=== PATIENT | female | born 1930 | race Two or more races ===

== ENCOUNTER 2017-05-09 15:30 | Inpatient (IN) ==
[2017-05-09] MEDS ORDERED: FUROSEMIDE 100 MG/10 ML VIAL IV STA (16:06)
[2017-05-09] MEDS ORDERED: MORPHINE 2 MG/1 ML SYRINGE IV STA (16:08)
[2017-05-09 16:19] LABS: Basophils % 0.1 % (0.0-0.8); Eosinophils % 0.3 % (0.00-10.9); Hematocrit 34.4 VOL% (35.7-47.0); Hemoglobin 11.6 GM/DL (12.0-16.0); Immature Granulocytes % 0.7 %; Immature Granulocytes Absolute 0.05 #; Lymphocytes # 0.9 10*3/uL (1.4-4.0); Lymphocytes % 11.1 % (21.3-54.2); Mean Corpuscular HGB Conc 33.7 GM/DL (32-36); Mean Corpuscular Hemoglobin 29 PG (27-34); Mean Corpuscular Volume 84.5 FL (87-102); Mean Platelet Volume 10.2 FL (9.6-12.0); NRBC # 0.04 10*3/uL; Neutrophils # 5.8 10*3/uL (1.4-7.4); Neutrophils % 74.8 % (38.7-73.9); Platelet Count 138 T/CUMM (130-400); Red Blood Count 4.07 MC/CUMM (3.8-5.5); White Blood Count 7.7 T/CUMM (4-12)
[2017-05-09] MEDS ORDERED: FUROSEMIDE 40 MG/4 ML VIAL ONE (16:19)
[2017-05-09] MEDS ORDERED: MORPHINE 2 MG/1 ML SYRINGE ONE (16:19)
[2017-05-09 16:35] LABS: Albumin 3.2 G/DL (3.4-5.0); Bilirubin,Total 1.9 MG/DL (0.2-1.0); Calcium 9.3 MG/DL (8.5-10.1); Potassium 3.6 MMOL/L (3.5-5.1); Total Protein 6.2 G/DL (6.4-8.3)
--- NOTE | 2017-05-09 16:36 | XRay Report ---
Portable chest Indication: Shortness of breath, cough Comparison: March 29, 2016 Findings: Heart size appears slightly more prominent with plaquing again noted along the arch. Persistent coarsening of the central interstitial. No focal consolidation. No acute osseous abnormalities. Visualized upper abdomen demonstrates no acute pathology. Impression: Cardiomegaly. No overt failure PROCEDURE INTERPRETED AT [facility] DEPARTMENT OF RADIOLOGY Final Report Signed by: Johnnie Gordon MD
[2017-05-09 16:39] LABS: Troponin I Only 0.058 NG/ML (0.00-0.045)
[2017-05-09 17:10] LABS: Apearance,Urine Slightly Hazy (Clear); Bacteria,Urine Occasional /HPF (Few); Bilirubin,Urine Negative (Negative); Blood, Urine Negative (Negative); Glucose,Urine (UA) Negative (Negative); Granular Casts,Urine 15 /LPF (0-1); Hyaline Casts,Urine 11 /LPF (0-3); Ketones,Urine Negative (Negative); Mucus,Urine Occasional /LPF (Occasional); Nitrite,Urine Negative (Negative); Protein,Urine Negative; RBC,Urine 1 /HPF (0-4); Squamous Epithelial Cell,Urine Occasional /HPF (0-10); Urine Color Yellow (Yellow); Urine Specific Gravity 1.006 (1.001-1.035); Urine Urobilinogen < 2.0 EU/DL (0.2-1.0); WBC,Urine 3 /HPF (0-6)
[2017-05-09] MEDS ORDERED: MAGNESIUM SULF RIDER 4 GM in PREMIX 1 EACH IV PRN (18:16)
[2017-05-09] MEDS ORDERED: MAGNESIUM SULF RIDER 2 GM in PREMIX 1 EACH IV PRN (18:16)
[2017-05-09] MEDS ORDERED: POTASSIUM CHLORIDE RIDER 10 MEQ in PREMIX 1 EACH IV PRN (18:16)
[2017-05-09] MEDS ORDERED: ACETAMINOPHEN 325 MG TABLET PO PRN (18:16)
[2017-05-09] MEDS ORDERED: MORPHINE 2 MG/1 ML SYRINGE IV PRN (18:16)
[2017-05-09] MEDS ORDERED: POTASSIUM CHLORIDE 20 MEQ/15 ML UDCUP PER TUBE PRN (18:16)
[2017-05-09] MEDS ORDERED: ONDANSETRON 4 MG/2 ML VIAL IV PRN (18:16)
--- NOTE | 2017-05-09 18:16 | Emergency Department Note ---
Reid Harmon Manpreet, am scribing for, and in the presence of, Slade Bennett MD 16:08. Donald Harmon Doug C, MD, personally performed the services described in this documentation, ascribed by Austin Mathews in my presence, and it is both accurate and complete . Arrival - Arrival Chief Complaint: Non-Specific Stated Complaint: not feeling well ED Nursing Triage Note: c/o not feeling well. Family states that patient thinks she is having a heart problem. Family states that patient has not felt good for about 3 days but today she is unable to walk. No chest pain but breathing is fast. Patient does not speak lao Mode of Arrival: Wheelchair Limitations: No Limitations Source: Patient - History of Present Illness HPI Narrative: Patient is a 87-year-old female who presents to emergency room complaining of increasing shortness of breath. Patient states she has had lower extremity swelling and dyspnea on exertion. This apparently started 2-3 days ago. Patient has a history of a leaking heart valve and has an appointment to see cardiology next week. She apparently is not having any chest pain. Patient does not speak Armenian but her family is able to interpret for her. There is no history of fever, chills or any increased cough. She is not having any urinary symptoms. Onset (ago): day(s) (3 days ago) Consistency: constant Severity: moderate Severity scale (1-10): 4 Allergies/Adverse Reactions: Allergies Allergy/AdvReac Type Severity Reaction Status Date / Time No Known Allergies Allergy Verified 05/09/17 15:39 Home Medications: Home Medications Medication Instructions Recorded Confirmed Type Atorvastatin Calcium 40 mg PO BEDTIME 03/29/16 05/09/17 History Clopidogrel [Plavix] 75 mg PO QAM 03/29/16 05/09/17 History Furosemide Tab [Lasix Tab] 20 mg PO BID 03/29/16 05/09/17 History Metoprolol Succinate Xl [Toprol Xl] 50 mg PO QAM 03/29/16 05/09/17 History Telmisartan 20 mg PO QAM 03/29/16 05/09/17 History Loratadine [Loratadine] 10 mg PO QAM 05/09/17 05/09/17 History Omeprazole [Omeprazole] 40 mg PO QAM 05/09/17 05/09/17 History Review of System - Review of System 12 point system: reviewed and no additional remarkable complaints except as stated - Review of System Constitutional: Present: weakness. Absent: chills, diaphoresis, fever Respiratory: Present: cough, respiratory distress Cardiovascular: Present: edema (in Bilat LE's and left arm). Absent: chest pain Gastrointestinal: Absent: abdominal pain, nausea, vomiting, diarrhea Genitourinary female: Absent: dysuria Musculoskeletal: Absent: arm pain, back pain, leg pain, neck pain Neurological: Absent: headache, weakness, numbness, paresthesias Medical,Surgical,& Family Hx - Medical History Cardio: History of: Hypertension (assumed from her medication list.), Valvular Heart Disease (Leaking heart valve) Reproductive: History of: Breast Cancer Other: History of: Miscellaneous Medical Problems (hyponatremia) - Surgical History Reproductive Surgeries: Surgical HX of;: Breast Surgery (mastectomy) - Family History Family History: noncontributory - Social History Smoking Status: Never smoker Frequency of Alcohol Use: None Type of Drug Use: None Exam Vital Signs: Vital Signs Temperature 98.0 F 05/09/17 16:08 Pulse Rate 79 05/09/17 17:30 Respiratory Rate 18 05/09/17 17:30 Blood Pressure 119/85 05/09/17 17:30 O2 Sat by Pulse Oximetry 100 05/09/17 17:30 - General General appearance: alert - Head Head exam: Present: atraumatic, normocephalic, normal inspection - Eye Eye exam: Present: normal appearance, PERRL, EOMI - ENT ENT exam: Present: normal exam, normal oropharynx, mucous membranes moist - Neck Neck exam: Present: full ROM, trachea midline, other (JVD noted). Absent: normal inspection, tenderness - Chest Chest inspection: Present: normal inspection, symmetric chest wall rise. Absent : tenderness - Respiratory Respiratory exam: Present: normal lung sounds bilaterally. Absent: accessory muscle use, respiratory distress - Cardiovascular Cardiovascular exam: Present: regular rate, normal rhythm, murmur (4/6 systolic murmur at left base). Absent: normal heart sounds - Abdominal Exam Abdominal exam: Present: soft, normal bowel sounds. Absent: distention, tenderness - Extremities Exam Extremities exam: Present: full ROM, pedal edema (3+ pitting pretibial edema). Absent: normal inspection, tenderness - Back Exam Back exam: Present: normal inspection, full ROM. Absent: tenderness - Neurological Exam Neurological exam: Present: alert, oriented X3, CN II-XII intact, reflexes normal - Psychiatric Psychiatric exam: Present: normal affect, normal mood - Skin Skin exam: Present: warm, dry, intact, normal color. Absent: pallor Course Course Narrative: Patient's clinical presentation, laboratory and radiograph findings were discussed with Dr. Siegel. The patient be admitted services of Dr. Esparza to a telemetry bed. Cardiology will be consulted. Results - Labs CBC & BMP: 05/09/17 15:50 05/09/17 15:50 Lab Results: I have reviewed the patients labs Labs: Laboratory Tests 05/09/17 15:50 WBC 7.7 RBC 4.07 Hgb 11.6 L Hct 34.4 L MCV 84.5 L MCH 29 MCHC 33.7 RDW 16.0 Plt Count 138 Neut % (Auto) 74.8 H Lymph % (Auto) 11.1 L Yell % (Auto) 13.0 H Lymph # (Auto) 0.9 L Yell # (Auto) 1.0 H Laboratory Tests 05/09/17 15:50 Sodium 136 Potassium 3.6 Chloride 105 Carbon Dioxide 20 L Anion Gap 14.6 BUN 45 H Creatinine 1.80 H GFR Calculation 27 BUN/Creatinine Ratio 25.00 H Glucose 122 H Calculated Osmolality 284.0 Calcium 9.3 Total Bilirubin 1.90 H AST 326 H ALT 387 H Alkaline Phosphatase 136 H Troponin I 0.058 H Total Protein 6.2 L Albumin 3.2 L Globulin 3.0 Albumin/Globulin Ratio 1.0 L Laboratory Tests 05/09/17 05/09/17 05/09/17 15:50 15:50 15:50 D-Dimer, Quantitative 3.6 B-Natriuretic Peptide 4141 H TSH 3rd Generation 2.500 - EKG EKG results: interpreted by ERMD, sinus rhythm, no acute changes - Diagnostic Findings Procedure: Chest x-ray: report reviewed by me ("Chest X-ray: Cardiomegaly. No overt failure.") Disposition Clinical Impression: Acute CHF Case discussed with: patient Disposition: Still a Patient Condition: Stable Time of Disposition: 18:15
[2017-05-09] MEDS ORDERED: ENOXAPARIN 30 MG/0.3 ML SYRINGE SUBCUT SCH (18:30)
[2017-05-09 20:35] LABS: CKMB % 5.2 %
[2017-05-09 20:38] LABS: Troponin I Only 0.054 NG/ML (0.00-0.045)
[2017-05-09] MEDS: ATORVASTATIN 40 MG TABLET PO SCH ×2 (21:24→21:29)
[2017-05-09] MEDS: CARVEDILOL 3.125 MG TABLET PO SCH (21:24)
[2017-05-09] MEDS: DOCUSATE SODIUM 100 MG CAPSULE PO SCH (21:24)
[2017-05-10 00:32] LABS: Troponin I Only 0.046 NG/ML (0.00-0.045)
[2017-05-10] MEDS ORDERED: PNEUMOCOCCAL VACCINE (13 VALENT) 0.5 ML SYRINGE IM ONE (00:47)
[2017-05-10 05:59] LABS: Calcium 9.3 MG/DL (8.5-10.1); Osmolality,Calculated 290.3 MOS/KG (273-304); Potassium 3.5 MMOL/L (3.5-5.1); Risk Ratio 1.76; VLDL CHOLESTEROL 9.8 MG/DL
--- NOTE | 2017-05-10 07:48 | XRay Report ---
Portable chest Indication: Shortness of breath, cough Comparison: May 09, 2017 Findings: Cardiomediastinal contours are stable with underlying cardiomegaly and plaquing along the arch. Chronic interstitial coarsening. No superimposed consolidative or congestive process. No acute osseous abnormalities. Visualized upper abdomen demonstrates no acute pathology. Impression: No acute cardiopulmonary findings PROCEDURE INTERPRETED AT [facility] DEPARTMENT OF RADIOLOGY Final Report Signed by: Johnnie Gordon MD
[2017-05-10] MEDS ORDERED: ASPIRIN CHEW 81 MG TABLET PO SCH (09:00)
[2017-05-10] MEDS: CLOPIDOGREL 75 MG TABLET PO SCH (09:00)
[2017-05-10] MEDS: DOCUSATE SODIUM 100 MG CAPSULE PO SCH ×2 (09:01→21:13)
[2017-05-10] MEDS: SPIRONOLACTONE 25 MG TABLET PO SCH (09:03)
[2017-05-10] MEDS: TELMISARTAN 40 MG TABLET PO SCH (09:04)
[2017-05-10] MEDS: LORATADINE 10 MG TABLET PO SCH (09:04)
[2017-05-10] MEDS: CARVEDILOL 3.125 MG TABLET PO SCH (09:05)
[2017-05-10] MEDS: PANTOPRAZOLE 40 MG TABLET PO SCH (09:05)
[2017-05-10] MEDS: FUROSEMIDE 40 MG/4 ML VIAL IV SCH ×2 (09:06→16:37)
[2017-05-10] MEDS ORDERED: METOPROLOL SUCCINATE XL 25 MG TABLET PO SCH (11:00)
--- NOTE | 2017-05-10 11:17 | Family Practice History&Phys ---
Assessment and Plan (1) Acute CHF Status: Acute Assessment and plan: Patient is responding to present treatment plan. Much more relaxed has had good diuresis. Will consult cardiology for further evaluation and treatment Current Visit: Yes (2) Renal insufficiency Status: Acute Assessment and plan: I assume this is a chronic condition but do not have copies of records. Will plan to monitor closely. Current Visit: Yes (3) Elevated liver enzymes Status: Acute Assessment and plan: This may be hepatic congestion from the congestive heart failure. Will evaluate further Current Visit: Yes (4) Hypertension Status: Chronic Assessment and plan: Controlled on present medications Current Visit: Yes (5) Status post carcinoma breast Status: Chronic Assessment and plan: Stable at present Current Visit: Yes History of Present Illness Chief complaint: Dyspnea and weakness History of present illness: Ms. Haddad is a 87 year old female Patient is a 87-year-old female who presents to emergency room complaining of increasing shortness of breath. Patient states she has had lower extremity swelling and dyspnea on exertion. This apparently started 2-3 days ago. Patient has a history of a leaking heart valve and has an appointment to see cardiology next week. She apparently is not having any chest pain. Patient does not speak French but her family is able to interpret for her. There is no history of fever, chills or any increased cough. Patient also noted to have renal insufficiency and elevated liver enzymes. In view of history patient is admitted further outpatient therapy. Home Medications Medication Instructions Recorded Confirmed Type Atorvastatin Calcium 40 mg PO BEDTIME 03/29/16 05/10/17 History Clopidogrel [Plavix] 75 mg PO QAM 03/29/16 05/10/17 History Furosemide Tab [Lasix Tab] 20 mg PO BID 03/29/16 05/10/17 History Metoprolol Succinate Xl [Toprol Xl] 25 mg PO QAM 03/29/16 05/10/17 History Telmisartan 20 mg PO QAM 03/29/16 05/10/17 History Loratadine [Loratadine] 10 mg PO QAM 05/09/17 05/10/17 History Omeprazole [Omeprazole] 40 mg PO QAM 05/09/17 05/10/17 History Allergies Allergy/AdvReac Type Severity Reaction Status Date / Time No Known Allergies Allergy Verified 05/09/17 15:39 Medical,Surgical,& Family Hx - Medical History Cardio: History of: Hypertension (assumed from her medication list.), Valvular Heart Disease (Leaking heart valve) HEENT: History of: Glaucoma Reproductive: History of: Breast Cancer (Right) Other: History of: Cancer (Right breast cancer), Miscellaneous Medical Problems (hyponatremia) - Surgical History Reproductive Surgeries: Surgical HX of;: Breast Surgery (Right mastectomy) Orthopedic Surgeries: Surgical HX of;: Total Knee Replacement (Right) - Family History Family History: Reports;: Family Cancer - Social History Smoking Status: Never smoker Have you smoked in the last 12 months: No Frequency of Alcohol Use: None Type of Drug Use: None Marital Status: Lives With:: Children Functional capacity: independent ambulation Exam - Constitutional Vitals: Period Temp Pulse Resp BP Sys/Umana Pulse Ox Last 24 Hr 97 F-98.0 F 74-86 18-20 87-121/51-85 93-100 General appearance: no acute distress - Head Head exam: Present: normal inspection - Eye Pupils: Present: DIVINE - ENT ENT exam: Present: normal exam - Neck Neck exam: Present: normal inspection - Respiratory Respiratory exam: Present: rales - Cardiovascular Cardiovascular exam: Present: regular rate and rhythm, systolic murmur - GI/Abdominal GI/Abdominal exam: Present: normal bowel sounds, soft - Extremities Exam Extremities exam: Present: normal inspection, edema - Neurological Exam Neurological exam: Present: alert, oriented X3 - Psychiatric Psychiatric exam: Present: normal affect - Skin Skin exam: Present: normal color Results - Labs CBC & BMP: 05/09/17 15:50 05/10/17 04:39
[2017-05-10] MEDS: FUROSEMIDE 20 MG TABLET PO SCH ×2 (12:40→21:12)
--- NOTE | 2017-05-10 13:40 | Order Completion Report ---
See report scanned to EMR
--- NOTE | 2017-05-10 14:13 | Cardiology Consult Note ---
Assessment and Plan (1) Severe pulmonary hypertension Status: Acute Current Visit: Yes (2) Severe mitral regurgitation Status: Acute Current Visit: Yes (3) Edema Status: Acute Current Visit: Yes (4) Troponin level elevated Status: Acute Current Visit: Yes (5) Hypertension Status: Chronic Current Visit: Yes (6) Status post carcinoma breast Status: Chronic Current Visit: Yes (7) Renal insufficiency Status: Acute Current Visit: Yes (8) Elevated liver enzymes Status: Acute Current Visit: Yes History of Present Illness - Data of Consult Patient: new to practice Consult date: 05/10/17 Requesting Physician: Hardik Siegel - Consult Narrative Reason for consult: CHF History of present illness: 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 Esparza The patient does not speak Upper Sorbian and history was obtained through multiple conversations with the patient's daughter, grandson, and a grandson in law (who is a gastroenterology fellow at [employer]). I spent greater than 30 minutes in the care of this patient to try to obtain an accurate history and review the patient 's information including the echocardiogram. I also coordinated care with Dr. Siegel. The patient was admitted to the hospital for complaints of shortness of breath and lower extremity edema. Apparently she has recently moved from [place] and has a history of a "leaky valve". She takes Plavix, although the reason for this is unknown and they believe it is related to her "leaky valve". She does have a history of breast cancer in the remote past and is status post mastectomy, radiation and chemotherapy for this. Also appears to have had a history of hypertension. There is no history of coronary artery disease, cardiac catheterization, stroke. Reportedly the patient saw her primary care provider 2-3 weeks ago and was diagnosed with hyponatremia. Multiple medication changes were made and the patient was told to increase her salt intake, may have also been given some salt tablets. She then began to develop some lower extremity edema, and Lasix was initiated. Her lower extremity edema and abdominal bloating worsened. She also developed some significant shortness of breath, and it is unclear whether or not this occurred as an acute event or not. She does not experience any chest pain. She has not had any other recent acute illnesses. She has had some decreased activity level. Her right upper extremity is edematous and this is somewhat chronic for her. This is related to her mastectomy. The bilateral lower extremity edema is new. She is not known to have any pulmonary disease and they do not recall her ever being told that she had pulmonary hypertension. On review of her echocardiogram she has severe pulmonary hypertension as well as some severe mitral regurgitation, despite having a relatively clear pulmonary exam and chest x-ray. Systolic function is preserved. Impression and plan: -Shortness of breath: She has severe pulmonary hypertension and severe mitral regurgitation although she is not particularly congested on exam. We will initiate workup for the pulmonary hypertension and consult pulmonology. This will include VQ scan, bilateral lower extremity and right upper extremity venous Dopplers. We may need to consider an uninfused CT scan of the chest. -Pulmonary hypertension: This appears to be a new diagnosis. Certainly her severe mitral regurgitation may contribute to this, although if this was the only contributing factor I would expect her to have more pulmonary congestion. This tends to be a degree of cor pulmonale. She does have a history of breast cancer. She has associated transaminitis which may be related to passive congestion or potential hepatopulmonary syndrome. See plan above. Query as to whether or not her recent hyponatremia may have been from a pulmonary process as well. I am going to anticoagulate her today while we proceed with this workup. Her clinical presentation does not suggest an acute pulmonary hypertension, rather I believe this has been indolently progressive. -Mitral regurgitation: This is severe, but as discussed above I believe there is even more contributing to her other symptoms. At some point this will need to be further evaluated. Managing this will be somewhat tricky. Conventional management would direct us towards afterload reduction, but with her severe pulmonary hypertension she will not tolerate this very well. We will have to practice some degree of permissive hypertension to keep her systolic pressure greater than her pulmonary pressure. -Edema: This is multifactorial from her pulmonary hypertension, renal insufficiency, possible hepatic pathology. The recent increase in salt intake is likely contributing. -Elevated troponin: This is likely from right ventricular strain. It is elevated in a plateaued fashion in the setting of renal insufficiency, is only mildly elevated and overall a nonspecific finding. -Hypertension: As discussed above we will need to practice permissive hypertension to keep her arterial pressure greater than her pulmonary pressures. -Transaminitis: I suspect this is from passive congestion. However, we will also get an abdominal ultrasound to rule out any primary abdominal pathology. -Renal insufficiency: Chronicity of this is unknown to me. CC: Migue Esparza MD - Home Medications and Allergies Home Medications: Home Medications Medication Instructions Recorded Confirmed Type Atorvastatin Calcium 40 mg PO BEDTIME 03/29/16 05/10/17 History Clopidogrel [Plavix] 75 mg PO QAM 03/29/16 05/10/17 History Furosemide Tab [Lasix Tab] 20 mg PO BID 03/29/16 05/10/17 History Metoprolol Succinate Xl [Toprol Xl] 25 mg PO QAM 03/29/16 05/10/17 History Telmisartan 20 mg PO QAM 03/29/16 05/10/17 History Loratadine [Loratadine] 10 mg PO QAM 05/09/17 05/10/17 History Omeprazole [Omeprazole] 40 mg PO QAM 05/09/17 05/10/17 History Allergies/Adverse Reactions: Allergies Allergy/AdvReac Type Severity Reaction Status Date / Time No Known Allergies Allergy Verified 05/09/17 15:39 12 point system: reviewed and no additional remarkable complaints except as stated Medical,Surgical,& Family Hx - Medical History Cardio: History of: Hypertension (assumed from her medication list.), Valvular Heart Disease (Leaking heart valve) HEENT: History of: Glaucoma Reproductive: History of: Breast Cancer (Right) Other: History of: Cancer (Right breast cancer), Miscellaneous Medical Problems (hyponatremia) - Surgical History Reproductive Surgeries: Surgical HX of;: Breast Surgery (Right mastectomy) Orthopedic Surgeries: Surgical HX of;: Total Knee Replacement (Right) - Family History Family History: Reports;: Family Cancer - Social History Smoking Status: Never smoker Frequency of Alcohol Use: None Type of Drug Use: None Lives With:: Children Functional capacity: independent ambulation Physical Examination Vital Signs Temp Pulse Resp BP Pulse Ox 98.0 F 86 20 103/59 93 L 05/09/17 15:34 05/09/17 15:34 05/09/17 15:34 05/09/17 15:34 05/09/17 15:34 Exam: General appearance: Pleasant, thin, frail-appearing, no acute distress on 2 L nasal cannula - Head Head exam: Present: normal inspection, normocephalic, atraumatic. Absent: hematoma, laceration - Eye Eye exam: Present: EOMI. Absent: conjunctival injection, nystagmus, periorbital swelling, scleral icterus, laceration to eyelids Pupils: Present: PERRL. Absent: constricted, dilated, fixed, irregular, unequal - ENT ENT exam: Present: normal exam, normal external ear exam - Neck Neck exam: Present: normal inspection. Absent: lymphadenopathy, meningismus, tenderness, thyromegaly - Respiratory Respiratory exam: Present: clear to auscultation bilaterally. Absent: accessory muscle use, chest wall tenderness - Cardiovascular Cardiovascular exam: Present: regular rate and rhythm with at least 3 separate murmurs including a higher pitched 2/6 holosystolic murmur at the right upper sternal border, a low pitched 4/6 holosystolic murmur loudest at the left lower sternal border and apex, as well as a 2/6 mid peaking diastolic murmur. There is JVD to the angle of the mandible. Right ventricular heave. Absent: carotid bruit, gallop, rubs - GI/Abdominal GI/Abdominal exam: Present: normal bowel sounds, protuberant but soft with suspected ascites and enlargement of the hepatic margin. Absent: firm, guarding , hernia, mass, tenderness, rebound. - Extremities Exam Extremities exam: Present: 2+ bilateral lower extremity edema with decreased pulse of the right lower extremity, 3+ right upper extremity edema. Absent: calf tenderness, joint effusions - Back Exam Back exam: Present: normal inspection. Absent: muscle spasm, vertebral tenderness - Neurological Exam Neurological exam: Present: alert, oriented X3, grossly intact without resting or intention tremor - Psychiatric Psychiatric exam: Present: normal affect, normal mood - Skin Skin exam: Present: normal color, warm, dry, intact. Absent: cyanosis, diaphoretic, rash, urticaria Result/EKG - Labs CBC & BMP: 05/09/17 15:50 05/10/17 04:39 Lab Results: I have reviewed the past 24 hour labs Labs: Laboratory Results - last 24 hr 05/09/17 05/09/17 05/09/17 15:50 15:50 15:50 WBC 7.7 RBC 4.07 Hgb 11.6 L Hct 34.4 L MCV 84.5 L MCH 29 MCHC 33.7 RDW 16.0 Plt Count 138 MPV 10.2 Neut % (Auto) 74.8 H Lymph % (Auto) 11.1 L Mcduffie % (Auto) 13.0 H Eos % (Auto) 0.3 Baso % (Auto) 0.1 Neut # (Auto) 5.8 Lymph # (Auto) 0.9 L Mcduffie # (Auto) 1.0 H Eos # (Auto) 0.0 Baso # (Auto) 0.0 Immature Gran % 0.7 Nucleated RBC % 0.5 Immature Gran # 0.05 Nucleated RBCs # 0.04 Immature Plt Fraction 0.0 D-Dimer, Quantitative 3.6 Sodium 136 Potassium 3.6 Chloride 105 Carbon Dioxide 20 L Anion Gap 14.6 BUN 45 H Creatinine 1.80 H GFR Calculation 27 BUN/Creatinine Ratio 25.00 H Glucose 122 H Calculated Osmolality 284.0 Calcium 9.3 Magnesium Total Bilirubin 1.90 H AST 326 H ALT 387 H Alkaline Phosphatase 136 H Total Creatine Kinase CK-MB (CK-2) CK and CKMB Interp Troponin I 0.058 H B-Natriuretic Peptide Total Protein 6.2 L Albumin 3.2 L Globulin 3.0 Albumin/Globulin Ratio 1.0 L Triglycerides Cholesterol LDL Cholesterol VLDL Cholesterol HDL Cholesterol Heart Disease Risk Ratio TSH 3rd Generation Urine Color Urine Appearance Urine pH Ur Specific [place] Urine Protein Urine Glucose (UA) Urine Ketones Urine Blood Urine Nitrate Urine Bilirubin Urine Urobilinogen Urine Leukocytes Urine RBC Urine WBC Urine WBC Clumps Ur Squamous Epith Cells Urine Bacteria Hyaline Casts Granular Casts Urine Mucus Ur Culture Indicated? 05/09/17 05/09/17 05/09/17 15:50 15:50 15:50 WBC RBC Hgb Hct MCV MCH MCHC RDW Plt Count MPV Neut % (Auto) Lymph % (Auto) Mcduffie % (Auto) Eos % (Auto) Baso % (Auto) Neut # (Auto) Lymph # (Auto) Mcduffie # (Auto) Eos # (Auto) Baso # (Auto) Immature Gran % Nucleated RBC % Immature Gran # Nucleated RBCs # Immature Plt Fraction D-Dimer, Quantitative Sodium Potassium Chloride Carbon Dioxide Anion Gap BUN Creatinine GFR Calculation BUN/Creatinine Ratio Glucose Calculated Osmolality Calcium Magnesium Total Bilirubin AST ALT Alkaline Phosphatase Total Creatine Kinase CK-MB (CK-2) CK and CKMB Interp Troponin I B-Natriuretic Peptide 4141 H Total Protein Albumin Globulin Albumin/Globulin Ratio Triglycerides Cholesterol LDL Cholesterol VLDL Cholesterol HDL Cholesterol Heart Disease Risk Ratio TSH 3rd Generation 2.500 Urine Color Yellow Urine Appearance Slightly hazy Urine pH 5.0 Ur Specific [place] 1.006 Urine Protein Negative Urine Glucose (UA) Negative Urine Ketones Negative Urine Blood Negative Urine Nitrate Negative Urine Bilirubin Negative Urine Urobilinogen < 2.0 H Urine Leukocytes Negative Urine RBC 1 Urine WBC 3 Urine WBC Clumps Occasional Ur Squamous Epith Cells Occasional Urine Bacteria Occasional Hyaline Casts 11 Granular Casts 15 Urine Mucus Occasional Ur Culture Indicated? Not indicated 05/09/17 05/09/17 05/10/17 20:00 23:47 04:39 WBC RBC Hgb Hct MCV MCH MCHC RDW Plt Count MPV Neut % (Auto) Lymph % (Auto) Mcduffie % (Auto) Eos % (Auto) Baso % (Auto) Neut # (Auto) Lymph # (Auto) Mcduffie # (Auto) Eos # (Auto) Baso # (Auto) Immature Gran % Nucleated RBC % Immature Gran # Nucleated RBCs # Immature Plt Fraction D-Dimer, Quantitative Sodium 141 Potassium 3.5 Chloride 105 Carbon Dioxide 26 Anion Gap 13.5 BUN 44 H Creatinine 1.70 H GFR Calculation 25 BUN/Creatinine Ratio 25.00 H Glucose 79 Calculated Osmolality 290.3 Calcium 9.3 Magnesium Total Bilirubin AST ALT Alkaline Phosphatase Total Creatine Kinase 100 76 D CK-MB (CK-2) 5.2 H 4.9 H CK and CKMB Interp 5.2 Troponin I 0.054 H 0.046 H B-Natriuretic Peptide Total Protein Albumin Globulin Albumin/Globulin Ratio Triglycerides 49 Cholesterol 60 LDL Cholesterol 32.0 VLDL Cholesterol 9.8 HDL Cholesterol 34 L Heart Disease Risk Ratio 1.76 TSH 3rd Generation Urine Color Urine Appearance Urine pH Ur Specific [place] Urine Protein Urine Glucose (UA) Urine Ketones Urine Blood Urine Nitrate Urine Bilirubin Urine Urobilinogen Urine Leukocytes Urine RBC Urine WBC Urine WBC Clumps Ur Squamous Epith Cells Urine Bacteria Hyaline Casts Granular Casts Urine Mucus Ur Culture Indicated? 05/10/17 04:39 WBC RBC Hgb Hct MCV MCH MCHC RDW Plt Count MPV Neut % (Auto) Lymph % (Auto) Mcduffie % (Auto) Eos % (Auto) Baso % (Auto) Neut # (Auto) Lymph # (Auto) Mcduffie # (Auto) Eos # (Auto) Baso # (Auto) Immature Gran % Nucleated RBC % Immature Gran # Nucleated RBCs # Immature Plt Fraction D-Dimer, Quantitative Sodium Potassium Chloride Carbon Dioxide Anion Gap BUN Creatinine GFR Calculation BUN/Creatinine Ratio Glucose Calculated Osmolality Calcium Magnesium 1.7 L Total Bilirubin AST ALT Alkaline Phosphatase Total Creatine Kinase CK-MB (CK-2) CK and CKMB Interp Troponin I B-Natriuretic Peptide Total Protein Albumin Globulin Albumin/Globulin Ratio Triglycerides Cholesterol LDL Cholesterol VLDL Cholesterol HDL Cholesterol Heart Disease Risk Ratio TSH 3rd Generation Urine Color Urine Appearance Urine pH Ur Specific [place] Urine Protein Urine Glucose (UA) Urine Ketones Urine Blood Urine Nitrate Urine Bilirubin Urine Urobilinogen Urine Leukocytes Urine RBC Urine WBC Urine WBC Clumps Ur Squamous Epith Cells Urine Bacteria Hyaline Casts Granular Casts Urine Mucus Ur Culture Indicated? - Diagnostic Findings Procedure: Chest x-ray: report reviewed by me - EKG EKG results: interpreted by me, sinus rhythm (PACs, RVH, T-wave inversion)
[2017-05-10] MEDS ORDERED: ENOXAPARIN 30 MG/0.3 ML SYRINGE SUBCUT ONE (14:29)
--- NOTE | 2017-05-10 14:50 | Order Completion Report ---
See report scanned to EMR
--- NOTE | 2017-05-10 18:43 | Ultrasound Report ---
Exam: US venous doppler LE BI Indication: Pain and swelling Technique: Gordon scale Doppler with color flow with spectral broadening was performed in routine fashion of the lower extremities per routine protocol Findings: The right common femoral, superficial femoral, popliteal and proximal saphenous saphenous veins are patent with normal waveform phasicity and augmentation as well as complete vessel compressibility. There is no evidence of popliteal or Pope's cyst. The left common femoral, superficial femoral, popliteal and proximal saphenous saphenous veins are patent with normal waveform phasicity and augmentation as well as complete vessel compressibility. Impression: No evidence of deep venous thrombosis within bilateral lower extremity Ultrasound images were captured and stored. PROCEDURE INTERPRETED AT [facility] DEPARTMENT OF RADIOLOGY Final Report Signed by: Johnnie Gordon MD
--- NOTE | 2017-05-10 18:45 | Ultrasound Report ---
Venous Doppler right upper extremity May 10, 2017 Indication: Pain and swelling Comparison images not available Technique: Gordon scale imaging of the right upper extremity utilizing color Doppler with spectral broadening was performed in routine fashion with image capture Findings: The venous structures throughout the right upper extremity widely patent. No findings to suggest occlusive thrombus or vascular injury. Impression: No evidence of deep venous thrombosis PROCEDURE INTERPRETED AT [facility] DEPARTMENT OF RADIOLOGY Final Report Signed by: Johnnie Gordon MD
--- NOTE | 2017-05-10 18:50 | Ultrasound Report ---
Exam: Ultrasound abdomen complete Clinical History: 87 years Female abdominal pain diffuse Technique: Real-time ultrasound of the abdomen with image documentation Comparison: Not available Findings: Liver: Unremarkable. No parenchymal abnormalities. No intrahepatic ductal biliary dilatation. Gallbladder: Unremarkable. No stones. No wall thickening. No pericholecystic fluid. Common bile duct: Common bile duct is within normal limits Pancreas: Unremarkable as visualized Spleen: Normal Kidneys: Normal in size, position and echotexture. 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 Visualized IVC and aorta are unremarkable. Impression: 1. No acute findings to explain patient's symptoms PROCEDURE INTERPRETED AT [facility] DEPARTMENT OF RADIOLOGY Final Report Signed by: Johnnie Gordon MD
[2017-05-11 05:01] LABS: Basophils % 0.1 % (0.0-0.8); Hematocrit 32.5 VOL% (35.7-47.0); Hemoglobin 10.9 GM/DL (12.0-16.0); Immature Granulocytes % 0.8 %; Immature Granulocytes Absolute 0.07 #; Lymphocytes # 0.6 10*3/uL (1.4-4.0); Mean Corpuscular HGB Conc 33.5 GM/DL (32-36); Mean Corpuscular Hemoglobin 28 PG (27-34); Mean Corpuscular Volume 83.8 FL (87-102); Mean Platelet Volume 10.4 FL (9.6-12.0); Monocytes % 11.4 % (1.7-12.7); Neutrophils # 7.2 10*3/uL (1.4-7.4); Neutrophils % 80.7 % (38.7-73.9); Platelet Count 126 T/CUMM (130-400); Red Blood Count 3.88 MC/CUMM (3.8-5.5); Red Cell Distribution Width 15.8 % (9.3-17.3); White Blood Count 8.9 T/CUMM (4-12)
[2017-05-11 05:30] LABS: Albumin 2.9 G/DL (3.4-5.0); Bilirubin,Total 2.1 MG/DL (0.2-1.0); Calcium 9.1 MG/DL (8.5-10.1); Magnesium 1.5 MG/DL (1.8-2.4); Osmolality,Calculated 290.1 MOS/KG (273-304); Potassium 2.9 MMOL/L (3.5-5.1); Total Protein 5.4 G/DL (6.4-8.3)
[2017-05-11] MEDS: POTASSIUM CHLORIDE 20 MEQ TABLET PO PRN ×4 (07:51→13:22)
[2017-05-11] MEDS: PANTOPRAZOLE 40 MG TABLET PO SCH (09:08)
[2017-05-11] MEDS: CLOPIDOGREL 75 MG TABLET PO SCH (09:08)
[2017-05-11] MEDS: SPIRONOLACTONE 25 MG TABLET PO SCH (09:09)
[2017-05-11] MEDS: DOCUSATE SODIUM 100 MG CAPSULE PO SCH ×2 (09:09→21:40)
[2017-05-11] MEDS: LORATADINE 10 MG TABLET PO SCH (09:09)
[2017-05-11] MEDS: FUROSEMIDE 40 MG/4 ML VIAL IV SCH (09:09)
[2017-05-11] MEDS: TELMISARTAN 40 MG TABLET PO SCH (09:10)
[2017-05-11] MEDS: FUROSEMIDE 20 MG TABLET PO SCH ×2 (09:10→21:39)
--- NOTE | 2017-05-11 09:24 | Pulmonology Consult Note ---
Assessment and Plan (1) Acute CHF Status: Acute Assessment and plan: Her symptoms have been consistent with heart failure and she is clinically better now. Current Visit: Yes (2) Hypertension Status: Chronic Assessment and plan: Her blood pressure is actually on the low side now. Current Visit: Yes (3) Status post carcinoma breast Status: Chronic Assessment and plan: She has no signs of recurrent disease. Current Visit: Yes (4) Severe pulmonary hypertension Status: Acute Assessment and plan: Her pulmonary hypertension is secondary to her mitral insufficiency. I doubt she has any lung disease. Will check her PO2 and see if she qualifies for oxygen. She is not a good candidate for ERA's. Current Visit: Yes (5) Severe mitral regurgitation Status: Acute Assessment and plan: The patient will need to continue to treat her heart failure. Current Visit: Yes History of Present Illness Chief complaint: Shortness of breath History of present illness: Ms. Haddad is a 87 year old [place]ian female that came in a few days ago with increased swelling and some shortness of breath. She does not speak Zambian but her daughters present. She apparently has been short of breath for at least a week or 2. She has been having more swelling. She has not been coughing or having any chest pain. She has never had any lung problems. She has never smoked or had asthma. She has been known to have valvular heart disease. She has a history of having breast cancer. Her echocardiogram shows severe mitral insufficiency she does have pulmonary hypertension. Her chest x- ray shows cardiomegaly but no overt heart failure. She does have passive congestion of her liver. Her daughter says she is breathing better and has diuresed fairly well with less edema. Home Medications Medication Instructions Recorded Confirmed Type Atorvastatin Calcium 40 mg PO BEDTIME 03/29/16 05/10/17 History Clopidogrel [Plavix] 75 mg PO QAM 03/29/16 05/10/17 History Furosemide Tab [Lasix Tab] 20 mg PO BID 03/29/16 05/10/17 History Metoprolol Succinate Xl [Toprol Xl] 25 mg PO QAM 03/29/16 05/10/17 History Telmisartan 20 mg PO QAM 03/29/16 05/10/17 History Loratadine [Loratadine] 10 mg PO QAM 05/09/17 05/10/17 History Omeprazole [Omeprazole] 40 mg PO QAM 05/09/17 05/10/17 History Allergies Allergy/AdvReac Type Severity Reaction Status Date / Time No Known Allergies Allergy Verified 05/09/17 15:39 - Constitutional Constitutional: Present: weight gain. Absent: chills, fever(s) - EENT Eyes: Absent: loss of vision Ears: Absent: decreased hearing Nose, mouth and throat: Absent: dysphagia, headache(s) - Cardiovascular Cardiovascular: Present: dyspnea on exertion, edema, orthopnea. Absent: chest pain at rest, chest pain with activity - Respiratory Respiratory: Absent: cough, wheezing - Gastrointestinal Gastrointestinal: Absent: abdominal pain, change in bowel habits, dysphagia, nausea, vomiting - Genitourinary Genitourinary: Absent: dysuria, hematuria, urinary frequency - Musculoskeletal Musculoskeletal: Absent: arthralgias - Neurological Neurological: Absent: abnormal gait, abnormal speech, focal weakness Exam (Pulmonay) H&P - Constitutional Vitals: Period Temp Pulse Resp BP Sys/Umana Pulse Ox Last 24 Hr 96.8 F-98.6 F 68-99 16-20 94-117/60-70 90-100 General appearance: normal weight, no acute distress (The patient looks comfortable lying in bed.) - Head Head exam: Present: normal inspection, normocephalic - Eye Eye exam: Present: EOMI. Absent: scleral icterus Pupils: Present: DIVINE - ENT ENT exam: Present: normal exam - Neck Neck exam: Absent: lymphadenopathy, thyromegaly - Respiratory Respiratory exam: Present: rales, other (She does have mild crackles in the bases.). Absent: accessory muscle use, wheezes - Cardiovascular Cardiovascular exam: Present: regular rate and rhythm, systolic murmur (She has a fairly loud systolic murmur with a laterally displaced PMI.). Absent: gallop - GI/Abdominal GI/Abdominal exam: Present: soft. Absent: distended, organomegaly, tenderness - Extremities Exam Extremities exam: Present: other (Her leg swelling is better.). Absent: calf tenderness, edema - Psychiatric Psychiatric exam: Present: normal affect - Skin Skin exam: Present: warm, dry Medical,Surgical,& Family Hx - Medical History Cardio: History of: Hypertension (assumed from her medication list.), Valvular Heart Disease (Leaking heart valve) HEENT: History of: Glaucoma Reproductive: History of: Breast Cancer (Right) Other: History of: Cancer (Right breast cancer), Miscellaneous Medical Problems (hyponatremia) - Surgical History Reproductive Surgeries: Surgical HX of;: Breast Surgery (Right mastectomy) Orthopedic Surgeries: Surgical HX of;: Total Knee Replacement (Right) - Family History Family History: Reports;: Family Cancer - Social History Smoking Status: Never smoker Frequency of Alcohol Use: None Type of Drug Use: None Results - Labs CBC & BMP: 05/11/17 04:23 05/11/17 04:23 - Diagnostic Findings Procedure: Chest x-ray: image reviewed by me, report reviewed by me (Chest x- ray does show marked cardiomegaly with no overt failure now.), Ultrasound: report reviewed by me (Venous Doppler negative for DVT.)
[2017-05-11 10:53] LABS: ABG HCO3 26.1 MMOL/L (20-26); ABG Oxygen Saturation 92.9 % (95-100); ABG PCO2 31.8 MM HG (35-48); ABG PH 7.499 (7.35-7.45); ABG PO2 65.6 MM HG (80-95); ABG TCO2 22.1 MMOL/L (23-27); Allen Test Positive; Pt O2 Delivery Device Room Air
[2017-05-11] MEDS: DICLOFENAC 1% GEL 100 GM TUBE TOP SCH ×3 (11:10→21:44)
[2017-05-11] MEDS: POTASSIUM CHLORIDE RIDER 10 MEQ in PREMIX 1 EACH IV SCH (12:30)
[2017-05-11] MEDS: POTASSIUM CHLORIDE 20 MEQ TABLET PO SCH ×2 (13:22→21:44)
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
--- NOTE | 2017-05-11 16:05 | XRay Report ---
Portable chest Indication: Shortness of breath, cough Comparison: Previous day at 600 hours Findings: Cardiomediastinal contours are stable with underlying cardiomegaly and plaquing along the arch. Lungs are clear bilaterally. No acute osseous abnormalities. Visualized upper abdomen demonstrates no acute pathology. Impression: Stable chest. No acute cardiopulmonary findings PROCEDURE INTERPRETED AT [facility] DEPARTMENT OF RADIOLOGY Final Report Signed by: Johnnie Gordon MD
--- NOTE | 2017-05-11 16:24 | Nuclear Medicine Report ---
VQ scan May 11, 2017 Indication: Pulmonary hypertension and elevated d-dimer, negative lower extremity ultrasound for DVT Technique: Planar imaging of the chest was performed after administration of aerosol 40 mCi technetium 99m DTPA and intravenous 5 mCi of technetium 99 MAA Findings: Mild segmental defect within the right upper lobe. No mismatch defects appreciated. Impression: Low probability scan for pulmonary embolism by PIOPED criteria. If strong clinical concern gold standard CTA CHEST should be performed. PROCEDURE INTERPRETED AT [facility] DEPARTMENT OF RADIOLOGY Final Report Signed by: Johnnie Gordon MD
--- NOTE | 2017-05-11 16:52 | Family Practice Progress Note ---
Family Practice - PN: Subj Interval history: 05/11/17 -patient has improved with diuretics and treatment. She appears to be relaxed with no acute distress. The VQ lung scan was not performed due to lack of availability of isotope. This is scheduled to be performed today. Her venous Doppler studies were negative. Her lung ybarra are clear to auscultation. Dr. Villa is still concerned about the etiology of her pulmonary hypertension and failure. She has ordered a repeat cardiac echo with a modification in a.m. Patient appears to be stable. Family indicated to Dr. Villa that they did not want any further invasive evaluation or treatment. It is difficult to communicate with family and I am not sure what this means in reference to her CODE STATUS. We will continue present evaluation and treatment and allow Dr. Esparza to discuss this further in a.m. Exam (Progress Note) - Constitutional Vitals: Period Temp Pulse Resp BP Sys/Umana Pulse Ox Last 24 Hr 96.8 F-98.6 F 91-99 16-18 94-119/57-70 90-98 Results - Labs CBC & BMP: 05/11/17 04:23 05/11/17 04:23 Assessment and Plan (1) Acute CHF Status: Acute Assessment and plan: Patient is responding to present treatment plan. Much more relaxed has had good diuresis. Will consult cardiology for further evaluation and treatment Current Visit: Yes (2) Renal insufficiency Status: Acute Assessment and plan: I assume this is a chronic condition but do not have copies of records. Will plan to monitor closely. Current Visit: Yes (3) Elevated liver enzymes Status: Acute Assessment and plan: This may be hepatic congestion from the congestive heart failure. Will evaluate further Current Visit: Yes (4) Hypertension Status: Chronic Assessment and plan: Controlled on present medications Current Visit: Yes (5) Status post carcinoma breast Status: Chronic Assessment and plan: Stable at present Current Visit: Yes
[2017-05-12 05:40] LABS: Basophils % 0.1 % (0.0-0.8); Eosinophils # 0.1 10*3/uL (0.0-0.87); Eosinophils % 1.1 % (0.00-10.9); Hematocrit 32.8 VOL% (35.7-47.0); Hemoglobin 10.9 GM/DL (12.0-16.0); Immature Granulocytes % 0.6 %; Immature Granulocytes Absolute 0.05 #; Lymphocytes # 0.9 10*3/uL (1.4-4.0); Lymphocytes % 11.2 % (21.3-54.2); Mean Corpuscular HGB Conc 33.2 GM/DL (32-36); Mean Corpuscular Hemoglobin 28 PG (27-34); Mean Corpuscular Volume 85.2 FL (87-102); Mean Platelet Volume 10.5 FL (9.6-12.0); Monocytes # 1.3 10*3/uL (0.11-0.8); Monocytes % 15.5 % (1.7-12.7); Neutrophils # 5.9 10*3/uL (1.4-7.4); Neutrophils % 71.5 % (38.7-73.9); Platelet Count 125 T/CUMM (130-400); Red Blood Count 3.85 MC/CUMM (3.8-5.5); Red Cell Distribution Width 16.1 % (9.3-17.3); White Blood Count 8.2 T/CUMM (4-12)
[2017-05-12 06:16] LABS: Calcium 9.4 MG/DL (8.5-10.1); Osmolality,Calculated 288.3 MOS/KG (273-304); Potassium 4.7 MMOL/L (3.5-5.1)
--- NOTE | 2017-05-12 08:17 | Cardiology Progress Note ---
Cardiology - PN: Subj Interval history: Cardiology note Frail 87-year-old woman admitted with CHF. BNP level 4459 now down to 2570 Patient speaks no Spanish and I did speak with her daughter Surface echo shows ejection fraction of 65% with dilated right ventricle with RVH and severe mitral regurgitation. Patient has severe TR with a calculated PAP 146 mmHg with moderate PI and aortic sclerosis. This degree of pulmonary hypertension is unusual with mitral regurgitation. Volume overload with left to right shunt should be considered. I would like to do a TINO and better evaluate the mitral valve. She may well end up with oxygen and Lasix as her therapy, but perhaps a mitral clip could reduce her MR and pulmonary pressure Blood pressure 118/70 O2 sat 97 on 2 L cannula Holosystolic murmur second left intercostal space and at the apex Plan Lasix 40 mg daily Spironolactone 12.5 mg daily Supplemental O2 Exam (Progress Note) - Constitutional Vitals: Period Temp Pulse Resp BP Sys/Umana Pulse Ox Last 24 Hr 97 F-97.9 F 78-98 16-20 87-119/42-72 91-100 Result/EKG - Labs CBC & BMP: 05/12/17 04:12 05/12/17 04:12 Labs: Laboratory Results - last 24 hr 05/11/17 05/12/17 05/12/17 10:55 04:12 04:12 WBC RBC Hgb Hct MCV MCH MCHC RDW Plt Count MPV Neut % (Auto) Lymph % (Auto) Dodge % (Auto) Eos % (Auto) Baso % (Auto) Neut # (Auto) Lymph # (Auto) Dodge # (Auto) Eos # (Auto) Baso # (Auto) Immature Gran % Nucleated RBC % Immature Gran # Nucleated RBCs # Immature Plt Fraction ABG pH 7.499 H ABG pCO2 31.8 L ABG pO2 65.6 L ABG HCO3 26.1 H ABG Total CO2 22.1 L ABG O2 Saturation 92.9 L ABG Base Excess 2.0 FiO2 21.00 Sodium 141 Potassium 4.7 Chloride 105 Carbon Dioxide 28 Anion Gap 12.7 BUN 34 H Creatinine 1.40 H GFR Calculation 32 BUN/Creatinine Ratio 24.00 H Glucose 102 Calculated Osmolality 288.3 Calcium 9.4 B-Natriuretic Peptide 2570 H 05/12/17 04:12 WBC 8.2 RBC 3.85 Hgb 10.9 L Hct 32.8 L MCV 85.2 L MCH 28 MCHC 33.2 RDW 16.1 Plt Count 125 L MPV 10.5 Neut % (Auto) 71.5 Lymph % (Auto) 11.2 L Dodge % (Auto) 15.5 H Eos % (Auto) 1.1 Baso % (Auto) 0.1 Neut # (Auto) 5.9 Lymph # (Auto) 0.9 L Dodge # (Auto) 1.3 H Eos # (Auto) 0.1 Baso # (Auto) 0.0 Immature Gran % 0.6 Nucleated RBC % 0.0 Immature Gran # 0.05 Nucleated RBCs # 0.00 Immature Plt Fraction 0.0 ABG pH ABG pCO2 ABG pO2 ABG HCO3 ABG Total CO2 ABG O2 Saturation ABG Base Excess FiO2 Sodium Potassium Chloride Carbon Dioxide Anion Gap BUN Creatinine GFR Calculation BUN/Creatinine Ratio Glucose Calculated Osmolality Calcium B-Natriuretic Peptide
[2017-05-12] MEDS: LORATADINE 10 MG TABLET PO SCH (08:29)
[2017-05-12] MEDS: POTASSIUM CHLORIDE 20 MEQ TABLET PO SCH ×2 (08:29→21:31)
[2017-05-12] MEDS: CLOPIDOGREL 75 MG TABLET PO SCH (08:29)
[2017-05-12] MEDS: SPIRONOLACTONE 25 MG TABLET PO SCH (08:29)
[2017-05-12] MEDS: PANTOPRAZOLE 40 MG TABLET PO SCH (08:30)
[2017-05-12] MEDS: DOCUSATE SODIUM 100 MG CAPSULE PO SCH ×2 (08:30→21:31)
[2017-05-12] MEDS: DICLOFENAC 1% GEL 100 GM TUBE TOP SCH ×3 (08:31→22:38)
[2017-05-12] MEDS: FUROSEMIDE 20 MG TABLET PO SCH ×2 (08:34→21:31)
--- NOTE | 2017-05-12 08:57 | Pulmonology Progress Note ---
Pulmonary - PN: Subj Interval history: The patient is a 87-year-old nonspeaking Dominican lady that came in with swelling and shortness of breath and has a component of right heart failure. She has been found to have significant pulmonary hypertension but does have severe mitral insufficiency. She is a non-smoker with no history of lung disease. She has diuresed fairly well and is feeling better. Her swelling has gone down and she is not short of breath lying flat in bed. She does not have any chest pain. She is quite comfortable at present. Her chest x-ray shows cardiomegaly. Her room air PO2 was 65 with no CO2 retention. Her VQ scan is low probability. She has had negative venous Dopplers also. Exam (Progress Note) - Constitutional Vitals: Period Temp Pulse Resp BP Sys/Umana Pulse Ox Last 24 Hr 97 F-97.9 F 78-98 16-20 87-119/42-72 91-100 Exam: General appearance: normal weight, no acute distress (The patient looks comfortable lying in bed. She is not short of breath now.) - Head Head exam: Present: normal inspection, normocephalic - Eye Eye exam: Present: EOMI. Absent: scleral icterus Pupils: Present: DIVINE - ENT ENT exam: Present: normal exam - Neck Neck exam: Absent: lymphadenopathy, thyromegaly - Respiratory Respiratory exam: Present: She has good breath sounds bilaterally and no wheezing and just minimal crackles in the bases - Cardiovascular Cardiovascular exam: Present: regular rate and rhythm, systolic murmur (She has a fairly loud systolic murmur with a laterally displaced PMI.). Absent: gallop - GI/Abdominal GI/Abdominal exam: Present: soft. Absent: distended, organomegaly, tenderness - Extremities Exam Extremities exam: Present: other (Her leg swelling is better.). Absent: calf tenderness, edema - Psychiatric Psychiatric exam: Present: normal affect - Skin Skin exam: Present: warm, dry Results - Labs CBC & BMP: 05/12/17 04:12 05/12/17 04:12 Labs: Her PO2 65 with a PCO2 of 31 and pH of 7.49 - Diagnostic Findings Procedure: Chest x-ray: image reviewed by me, report reviewed by me (Chest x- ray shows cardiomegaly with clear lung ybarra.), X-ray: report reviewed by me, image reviewed by me (VQ lung scan is low probability.) Assessment and Plan (1) Acute CHF Status: Acute Assessment and plan: Her symptoms have been consistent with heart failure and she is clinically better now. She mainly has right heart failure. Current Visit: Yes (2) Hypertension Status: Chronic Assessment and plan: Her blood pressure is actually on the low side now. Her heart rate and blood pressure are okay at present. Current Visit: Yes (3) Status post carcinoma breast Status: Chronic Assessment and plan: She has no signs of recurrent disease. Current Visit: Yes (4) Severe pulmonary hypertension Status: Acute Assessment and plan: Her pulmonary hypertension is secondary to her mitral insufficiency and heart disease. I doubt she has any lung disease. Her VQ lung scan looks okay. Her venous Dopplers are negative. Her room air ABGs are okay. She is getting a cardiac workup. Current Visit: Yes (5) Severe mitral regurgitation Status: Acute Assessment and plan: The patient will need to continue to treat her heart failure. She will get a TINO. Current Visit: Yes
[2017-05-12] MEDS ORDERED: FUROSEMIDE 40 MG/4 ML VIAL IV SCH (09:00)
--- NOTE | 2017-05-12 09:05 | Internal Med Progress Note ---
Assessment and Plan (1) Acute CHF Status: Acute Assessment and plan: 87-year-old female admitted to acute care * Acute CHF. She is diuresing well. Her weight was not correct. She is going to be reevaluated on a standing scale. Discussed with Dr. Ryan about further course of action. * History of severe MR and pulmonary hypertension. These are going on for at least 3-4 years and are chronic findings. Patient has been well compensated * Hypertension. Blood pressure is stable * History of breast cancer. Stable * Elevated liver enzymes. Probably secondary to passive congestion. * Discussed with patient's family members * Will get PT to see the patient. * DC Noriega catheter Current Visit: Yes (2) Elevated liver enzymes Status: Acute Current Visit: Yes (3) Renal insufficiency Status: Acute Current Visit: Yes (4) Severe mitral regurgitation Status: Acute Current Visit: Yes (5) Severe pulmonary hypertension Status: Acute Current Visit: Yes (6) Hypertension Status: Chronic Current Visit: Yes Internal Medicine - PN: Subj Interval history: 87-year-old female with history of severe MR, pulmonary hypertension and CHF with preserved ejection fraction was admitted with increasing shortness of breath. She was in acute CHF and has done well with IV Lasix. She is much more comfortable today. Her daughter is present with her. She denies any chest pain and her shortness of breath is better. She denies any nausea or vomiting Exam (Progress Note) - Constitutional Vitals: Period Temp Pulse Resp BP Sys/Umana Pulse Ox Last 24 Hr 97 F-97.9 F 78-98 16-20 87-119/42-72 91-100 Exam: Examination: GENERAL: NAD. HEENT: PERRLA. EOMI. Mucous membranes are moist. NECK: Neck is supple. No JVD. No carotid bruit. No thyromegaly. CVS: Regular rate and rhythm. S1 and S2 are normal. Holosystolic murmur heard all over the RESPIRATORY: Lungs are clear. Few bibasilar rales ABDOMEN: Soft and nontender. Bowel sounds are present. No hepatosplenomegaly. EXT: Trace edema. Peripheral pulses are present. 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 Cranial nerves II through XII are grossly intact. Motor strength is 3-4/5 SKIN: Warm and dry. MSK: No obvious deformity. Results - Labs CBC & BMP: 05/12/17 04:12 05/12/17 04:12 Lab Results: I have reviewed the past 24 hour labs
--- NOTE | 2017-05-12 10:32 | Physician Query Form ---
CLICK EDIT DOCUMENT TO SELECT QUERY ANSWER --> OK --> SIGN Sapphire Lewis RN Clinical Psychiatric Lpn W) [phone] (f) [phone] [email or web address]: Make your selection(s) from the choices in EACH section by typing an "x" and enter comments in the comment section. Please use your independent medical judgment in providing your response. This request does not imply that any particular answer is desired or expected. CLINICAL INDICATORS: (Providers should not edit this section) Based on documentation of "Acute CHF" Echo shows EF 65% with Grade 1/4 diastolic dysfunction. BNP of 4459. Treated with IV Lasix. Please provide further specificity regarding CHF. ACUITY: ( ) Acute ( ) Chronic (x ) Acute on Chronic ( ) Clinically unable to determine TYPE: ( ) Systolic (HFrEF - heart failure with reduced systolic function/EF) ( x) Diastolic (HFpEF - heart failure with preserved systolic function/EF) ( ) Combined Systolic/Diastolic ( ) Other, please specify: Chronic heart failure secondary to severe mitral valve regurgitation ( ) Clinically unable to determine ( ) Past Medical History of Systolic CHF ( ) Past Medical History of Diastolic CHF ( ) Clinically unable to determine COMMENTS: PLEASE ALSO DOCUMENT RESPONSE IN PROGRESS NOTES AND/OR DISCHARGE SUMMARY Use of terms such as suspected, likely, or probable (associated with a specific diagnosis that is being evaluated, monitored, or treated as if it exists) are acceptable and can be restated in the discharge summary if not ruled out. MTDD
--- NOTE | 2017-05-12 10:35 | Physician Query Form ---
CLICK EDIT DOCUMENT TO SELECT QUERY ANSWER --> OK --> SIGN Sapphire Lewis RN Clinical Supervisor [employer] W) [phone] (f) [phone] [email or web address] PROVIDERS: Make your selection(s) from the choices in EACH section by typing an "x" and enter comments in the comment section. Please use your independent medical judgment in providing your response. This request does not imply that any particular answer is desired or expected. CLINICAL INDICATORS: (Providers should not edit this section) Based on documentation of "Acute renal insufficiency" Creatinine from 1.8 to 1.4. GFR form 27 to 32. Monitored with serial lab checks. Clarify which of the following most accurately represents the patient's renal status: ( ) Acute kidney injury (non-traumatic) ( ) Acute renal failure ( ) Acute renal failure with underlying Chronic Kidney Disease (CKD) - please provide stage below ( ) Acute renal failure with pathological renal lesion ( ) Acute renal failure with necrosis ( ) tubular ( ) medullary ( ) cortical ( ) CKD - please provide stage below ( ) End Stage Renal Disease ( ) Acute interstitial nephritis ( ) Hepatorenal syndrome (x ) Other, please specify: Acute renal insufficiency secondary to diuresis ( ) Clinically unable to determine Chronic Kidney Disease Stages Source: National Kidney Disease Foundation ( ) Stage I (eGFR > or = 90) ( ) Stage II (eGFR 60 - 89) ( x) Stage III (eGFR 30 - 59) ( ) Stage IV (eGFR 15 - 29) ( ) Stage V (eGFR < 15 or dialysis) COMMENTS: PLEASE ALSO DOCUMENT RESPONSE IN PROGRESS NOTES AND/OR DISCHARGE SUMMARY Use of terms such as suspected, likely, or probable (associated with a specific diagnosis that is being evaluated, monitored, or treated as if it exists) are acceptable and can be restated in the discharge summary if not ruled out. MTDD
--- NOTE | 2017-05-12 13:34 | Order Completion Report ---
See report scanned to EMR
[2017-05-13 03:53] LABS: Basophils % 0.1 % (0.0-0.8); Eosinophils # 0.2 10*3/uL (0.0-0.87); Eosinophils % 2.2 % (0.00-10.9); Hematocrit 35.1 VOL% (35.7-47.0); Hemoglobin 11.5 GM/DL (12.0-16.0); Immature Granulocytes % 0.8 %; Immature Granulocytes Absolute 0.06 #; Lymphocytes # 0.9 10*3/uL (1.4-4.0); Lymphocytes % 12.3 % (21.3-54.2); Mean Corpuscular HGB Conc 32.8 GM/DL (32-36); Mean Corpuscular Hemoglobin 28 PG (27-34); Mean Corpuscular Volume 85.2 FL (87-102); Monocytes # 0.9 10*3/uL (0.11-0.8); Monocytes % 11.5 % (1.7-12.7); Neutrophils # 5.4 10*3/uL (1.4-7.4); Neutrophils % 73.1 % (38.7-73.9); Platelet Count 153 T/CUMM (130-400); Red Blood Count 4.12 MC/CUMM (3.8-5.5); Red Cell Distribution Width 16.2 % (9.3-17.3); White Blood Count 7.4 T/CUMM (4-12)
[2017-05-13 04:29] LABS: Calcium 9.8 MG/DL (8.5-10.1); Magnesium 2.1 MG/DL (1.8-2.4); Osmolality,Calculated 287.3 MOS/KG (273-304); Potassium 4.8 MMOL/L (3.5-5.1)
--- NOTE | 2017-05-13 08:42 | Cardiology Progress Note ---
Cardiology - PN: Subj Interval history: Cardiology note Breathing is improved. Telemetry shows sinus rhythm in the 70s and 80s O2 sat 93% on 2 L Blood pressure 126/70 in the right arm by me. Regular rhythm with holosystolic murmur across precordium and radiates into axilla Abdomen soft benign No leg edema lab data today White count 7.4 hemoglobin 11.5 hematocrit 35.1 Sodium 141 potassium 4.8 chloride 104 CO2 29 BUN 34 creatinine 1.40 Glucose 85 magnesium 2.1 Echo shows ejection fraction of 60% with flattened septum consistent with RV pressure/volume overload Dilated right-sided chambers with severe TR, PA P1 135 mmHg. Agitated saline injection demonstrated no shunt. Impression Chronic severe mitral regurgitation with severe pulmonary hypertension Ejection fraction 60% Plan Switch to p.o. Lasix BMP in a.m. Home soon Exam (Progress Note) - Constitutional Vitals: Period Temp Pulse Resp BP Sys/Umana Pulse Ox Last 24 Hr 97.2 F-97.8 F 84-97 16-19 104-131/56-79 93-98 Result/EKG - Labs CBC & BMP: 05/13/17 02:23 05/13/17 02:23 Labs: Laboratory Results - last 24 hr 05/13/17 05/13/17 02:23 02:23 WBC 7.4 RBC 4.12 Hgb 11.5 L Hct 35.1 L MCV 85.2 L MCH 28 MCHC 32.8 RDW 16.2 Plt Count 153 D MPV 11.0 Neut % (Auto) 73.1 Lymph % (Auto) 12.[address] [place] % (Auto) 11.5 Eos % (Auto) 2.2 Baso % (Auto) 0.1 Neut # (Auto) 5.4 Lymph # (Auto) 0.[address] [place] # (Auto) 0.9 H Eos # (Auto) 0.2 Baso # (Auto) 0.0 Immature Gran % 0.8 Nucleated RBC % 0.0 Immature Gran # 0.06 Nucleated RBCs # 0.00 Immature Plt Fraction 0.0 Sodium 141 Potassium 4.8 Chloride 104 Carbon Dioxide 29 Anion Gap 12.8 BUN 34 H Creatinine 1.40 H GFR Calculation 32 BUN/Creatinine Ratio 24.00 H Glucose 85 Calculated Osmolality 287.3 Calcium 9.8 Magnesium 2.1
--- NOTE | 2017-05-13 08:51 | Internal Med Progress Note ---
Assessment and Plan (1) Acute CHF Status: Acute Assessment and plan: 87-year-old female admitted to acute care * Acute CHF. She feels more comfortable although her weight is going up. Will change her to Lasix 40 twice daily p.o. * History of severe MR and pulmonary hypertension. Echocardiogram noted * Hypertension. Blood pressure is stable * History of breast cancer. Stable * Elevated liver enzymes. Probably secondary to passive congestion. * Discussed with patient's family members * Family members will discuss about CODE STATUS. Patient wants to go home rather than going to swing bed Current Visit: Yes (2) Elevated liver enzymes Status: Acute Current Visit: Yes (3) Renal insufficiency Status: Acute Current Visit: Yes (4) Severe mitral regurgitation Status: Acute Current Visit: Yes (5) Severe pulmonary hypertension Status: Acute Current Visit: Yes (6) Hypertension Status: Chronic Current Visit: Yes Internal Medicine - PN: Subj Interval history: She feels somewhat better this morning. No chest pain or shortness of breath. She is quite weak and has dyspnea on exertion. Exam (Progress Note) - Constitutional Vitals: Period Temp Pulse Resp BP Sys/Umana Pulse Ox Last 24 Hr 97.2 F-97.8 F 84-97 16-19 104-131/56-79 93-98 Exam: Examination: GENERAL: NAD. HEENT: PERRLA. EOMI. NECK: Neck is supple. CVS: Regular rate and rhythm. S1 and S2 are normal. Holosystolic murmur heard all over the RESPIRATORY: Lungs are clear. Few bibasilar rales ABDOMEN: Soft and nontender. EXT: Trace edema. Peripheral pulses are present. 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 MSK: No obvious deformity. Results - Labs CBC & BMP: 05/13/17 02:23 05/13/17 02:23 Lab Results: I have reviewed the past 24 hour labs
[2017-05-13] MEDS: CLOPIDOGREL 75 MG TABLET PO SCH (10:33)
[2017-05-13] MEDS: DOCUSATE SODIUM 100 MG CAPSULE PO SCH ×2 (10:33→22:15)
[2017-05-13] MEDS: SPIRONOLACTONE 25 MG TABLET PO SCH (10:33)
[2017-05-13] MEDS: FUROSEMIDE 40 MG TABLET PO SCH ×2 (10:34→17:42)
[2017-05-13] MEDS: POTASSIUM CHLORIDE 20 MEQ TABLET PO SCH ×2 (10:34→22:16)
[2017-05-13] MEDS: LORATADINE 10 MG TABLET PO SCH (10:34)
[2017-05-13] MEDS: PANTOPRAZOLE 40 MG TABLET PO SCH (10:34)
[2017-05-13] MEDS: DICLOFENAC 1% GEL 100 GM TUBE TOP SCH ×3 (11:24→22:16)
--- NOTE | 2017-05-13 13:27 | Pulmonology Progress Note ---
Pulmonary - PN: Subj Interval history: The patient is a 87-year-old nonspeaking lady that came in with swelling and shortness of breath and has a component of right heart failure. She has been found to have significant pulmonary hypertension but does have severe mitral insufficiency. She is a non-smoker with no history of lung disease. She has diuresed fairly well and is feeling better. Her swelling has gone down and she is not short of breath lying flat in bed. She does not have any chest pain. She is quite comfortable at present. Her chest x-ray shows cardiomegaly. Her room air PO2 was 65 with no CO2 retention. Her VQ scan is low probability. She has had negative venous Dopplers also. The patient has been feeling a little better with less shortness of breath. She is able to lie flat in bed. She is not able to do much walking. Her swelling is better and her shortness of breath does seem to be better. Exam (Progress Note) - Constitutional Vitals: Period Temp Pulse Resp BP Sys/Umana Pulse Ox Last 24 Hr 97 F-97.8 F 84-103 16-18 104-131/56-79 93-98 Exam: General appearance: normal weight, no acute distress (The patient looks comfortable lying in bed. She is not short of breath now.) - Head Head exam: Present: normal inspection, normocephalic - Eye Eye exam: Present: EOMI. Absent: scleral icterus Pupils: Present: DIVINE - ENT ENT exam: Present: normal exam - Neck Neck exam: Absent: lymphadenopathy, thyromegaly - Respiratory Respiratory exam: Present: She has good breath sounds bilaterally and no wheezing in her lungs sound reasonably clear. - Cardiovascular Cardiovascular exam: Present: regular rate and rhythm, systolic murmur (She has a fairly loud systolic murmur with a laterally displaced PMI.). Absent: gallop - GI/Abdominal GI/Abdominal exam: Present: soft. Absent: distended, organomegaly, tenderness - Extremities Exam Extremities exam: Present: Her leg swelling is much better. - Psychiatric Psychiatric exam: Present: normal affect - Skin Skin exam: Present: warm, dry Results - Labs CBC & BMP: 05/13/17 02:23 05/13/17 02:23 Assessment and Plan (1) Acute CHF Status: Acute Assessment and plan: Her symptoms have been consistent with heart failure and she is clinically better now. She mainly has right heart failure. She is still getting diuretics. Current Visit: Yes (2) Hypertension Status: Chronic Assessment and plan: Her blood pressure is actually on the low side now. Her heart rate and blood pressure are okay at present. Current Visit: Yes (3) Status post carcinoma breast Status: Chronic Assessment and plan: She has no signs of recurrent disease. Current Visit: Yes (4) Severe pulmonary hypertension Status: Acute Assessment and plan: Her pulmonary hypertension is secondary to her mitral insufficiency and heart disease. I doubt she has any lung disease. Her VQ lung scan looks okay. Her venous Dopplers are negative. Her room air ABGs are okay. She will probably need home oxygen at some point. Current Visit: Yes (5) Severe mitral regurgitation Status: Acute Assessment and plan: The patient will need to continue to treat her heart failure. She looks reasonably comfortable at present. Current Visit: Yes
[2017-05-13] MEDS ORDERED: FUROSEMIDE 40 MG TABLET PO SCH (16:00)
[2017-05-14 05:39] LABS: Calcium 9.5 MG/DL (8.5-10.1); Magnesium 1.8 MG/DL (1.8-2.4); Osmolality,Calculated 287.1 MOS/KG (273-304); Potassium 4.4 MMOL/L (3.5-5.1)
[2017-05-14 08:21] VITALS: BP 130/79
--- NOTE | 2017-05-14 08:46 | Cardiology Progress Note ---
Cardiology - PN: Subj Interval history: Cardiology note She is weak but no specific complaints. Telemetry shows steady sinus rhythm. Blood pressure 120/75 O2 sat 93% on 2 L Regular rhythm with holosystolic murmur to the apex Decreased breath sounds but fairly clear Abdomen benign No leg edema Lab data White count 7.4 hemoglobin 11.5 hematocrit 35.1 Sodium 142 potassium 4.4 chloride 104 CO2 31 BUN 30 creatinine 1.20 Impression Chronic severe MR with severe pulmonary hypertension Ejection fraction 60% Advanced age and debility Plan Normal sodium and creatinine and no edema. Patient is compensated on Lasix 40 mg twice daily and spironolactone 12.5 mg daily and potassium 20 mEq twice daily. Discharge per Dr. Esparza. Office visit with EKG in 2 weeks and BMP Exam (Progress Note) - Constitutional Vitals: Period Temp Pulse Resp BP Sys/Umana Pulse Ox Last 24 Hr 97 F-98.7 F 90-103 17-20 97-130/48-79 92-97 Result/EKG - Labs CBC & BMP: 05/13/17 02:23 05/14/17 04:01 Labs: Laboratory Results - last 24 hr 05/14/17 04:01 Sodium 142 Potassium 4.4 Chloride 104 Carbon Dioxide 31 Anion Gap 11.4 BUN 30 H Creatinine 1.20 H GFR Calculation 39 BUN/Creatinine Ratio 25.00 H Glucose 75 Calculated Osmolality 287.1 Calcium 9.5 Magnesium 1.8
--- NOTE | 2017-05-14 08:53 | Pulmonology Progress Note ---
Pulmonary - PN: Subj Interval history: The patient is a 87-year-old nonspeaking lady that came in with swelling and shortness of breath and has a component of right heart failure. She has been found to have significant pulmonary hypertension but does have severe mitral insufficiency. She is a non-smoker with no history of lung disease. She has diuresed fairly well and is feeling better. Her swelling has gone down and she is not short of breath lying flat in bed. She does not have any chest pain. She is quite comfortable at present. Her chest x-ray shows cardiomegaly. Her room air PO2 was 65 with no CO2 retention. Her VQ scan is low probability. She has had negative venous Dopplers also. She had a fairly good night and is having less shortness of breath. She does get short of breath with very little activity. She did qualify for oxygen and this will certainly help with her pulmonary hypertension. She should probably should wear oxygen all the time. She is getting some diuretic therapy. The family wants to take her home and try some outpatient physical therapy. Exam (Progress Note) - Constitutional Vitals: Period Temp Pulse Resp BP Sys/Umana Pulse Ox Last 24 Hr 97 F-98.7 F 90-103 17-20 97-130/48-79 92-97 Exam: General appearance: normal weight, no acute distress (The patient looks comfortable lying in bed. She is not short of breath now.) - Head Head exam: Present: normal inspection, normocephalic - Eye Eye exam: Present: EOMI. Absent: scleral icterus Pupils: Present: DIVINE - ENT ENT exam: Present: normal exam - Neck Neck exam: Absent: lymphadenopathy, thyromegaly - Respiratory Respiratory exam: Present: She has good breath sounds bilaterally and no wheezing she has minimal crackles in the bases. - Cardiovascular Cardiovascular exam: Present: regular rate and rhythm, systolic murmur (She has a fairly loud systolic murmur with a laterally displaced PMI.). Absent: gallop - GI/Abdominal GI/Abdominal exam: Present: soft. Absent: distended, organomegaly, tenderness - Extremities Exam Extremities exam: Present: Her leg swelling is much better. - Psychiatric Psychiatric exam: Present: normal affect - Skin Skin exam: Present: warm, dry Results - Labs CBC & BMP: 05/13/17 02:23 05/14/17 04:01 Assessment and Plan (1) Acute CHF Status: Acute Assessment and plan: Her symptoms have been consistent with heart failure and she is clinically better now. She mainly has right heart failure. She is still getting diuretics. Overall she feels better. Current Visit: Yes (2) Hypertension Status: Chronic Assessment and plan: Her blood pressure is better now and she seems to be stable. Current Visit: Yes (3) Status post carcinoma breast Status: Chronic Assessment and plan: She has no signs of recurrent disease. Current Visit: Yes (4) Severe pulmonary hypertension Status: Acute Assessment and plan: Her pulmonary hypertension is secondary to her mitral insufficiency and heart disease. I doubt she has any lung disease. Her VQ lung scan looks okay. Her venous Dopplers are negative. She does drop her O2 saturation with exercise. She does need oxygen at home to help with her pulmonary hypertension. Current Visit: Yes (5) Severe mitral regurgitation Status: Acute Assessment and plan: The patient will need to continue to treat her heart failure. She looks reasonably comfortable at present. Her heart failure is a little better. Current Visit: Yes
--- NOTE | 2017-05-14 09:01 | Discharge Summary ---
Hospital Course - Hospital Course Hospital Course: Patient is 87-year-old female with history of severe mitral regurgitation, CHF with preserved ejection fraction, pulmonary hypertension and right ventricular failure who was admitted with increasing shortness of breath. Patient was started on diuretics. She was seen in consultation by cardiology and pulmonary medicine. Her medications were simplified. She had 2 echocardiograms done which showed pulmonary hypertension. She was started on home oxygen. She is ready to be discharged. Physical therapy recommended her going to swing bed but patient declined. She is going to go home and I will see her back in the office in about 1 week with ALEXANDER. Discussed in detail with patient's family members Diagnosis - Discharge Diagnosis (1) Acute CHF Status: Acute (2) Elevated liver enzymes Status: Acute (3) Renal insufficiency Status: Acute (4) Severe mitral regurgitation Status: Acute (5) Severe pulmonary hypertension Status: Acute (6) Hypertension Status: Chronic Discharge Plan - Discharge Data Disposition: Disch To Home/Self Care Condition at Discharge: Stable - Discharge Medications New Potassium Chloride Cap/Tab [K Dur] 20 meq PO BID #60 tablet Spironolactone [Aldactone] 12.5 mg PO DAILY #30 tablet Furosemide Tab [Lasix Tab] 40 mg PO BID DIURETIC #60 tablet Continue Clopidogrel [Plavix] 75 mg PO QAM Atorvastatin Calcium 40 mg PO BEDTIME Loratadine 10 mg PO QAM Discontinued Telmisartan 20 mg PO QAM Furosemide Tab [Lasix Tab] 20 mg PO BID Metoprolol Succinate Xl [Toprol Xl] 25 mg PO QAM Omeprazole [Omeprazole] 40 mg PO QAM - Follow Up or Referral - Forms/Instructions Additional Discharge Instructions: Appointment in office in 1 week with TCM. MUNOZ. Please go over her discharge medications with family members and call in her new medication Exam - Constitutional Vitals: Period Temp Pulse Resp BP Sys/Umana Pulse Ox Last 24 Hr 97 F-98.7 F 90-103 17-20 97-130/48-79 92-97 Exam: Examination: GENERAL: NAD. NECK: Neck is supple. CVS: Regular rate and rhythm. S1 and S2 are normal. Holosystolic murmur heard all over the RESPIRATORY: Lungs are clear. Few bibasilar rales ABDOMEN: Soft and nontender. EXT: Trace edema. Peripheral pulses are present. RN REHAB: No change SKIN: Warm and dry. MSK: No obvious deformity. Discharge Results Procedures and tests throughout hospitalization: Pending Orders 05/15/17 04:00 BMP w/ Mg [Basic Metabolic Panel w/Mg] IN AM Labs on day of discharge: Labs from last 24 hours 05/14/17 04:01 Sodium 142 Potassium 4.4 Chloride 104 Carbon Dioxide 31 Anion Gap 11.4 BUN 30 H Creatinine 1.20 H GFR Calculation 39 BUN/Creatinine Ratio 25.00 H Glucose 75 Calculated Osmolality 287.1 Calcium 9.5 Magnesium 1.8 DS: Provider Date of admission: 05/09/17 18:16 Primary care physician: . No PCP Attending physician on admission: Migue Esparza MD Consults: 05/09/17 18:16 Consult to Case Mgmt/Social Srvs [CONS] Routine Reason for Case Mgmt/Social Srvs: Discharge Planning 05/09/17 18:18 Consult to Physician [CONS] Routine Comment: Consulting Provider: Cardiology - [facility] Person Notified: Dr. Villa Date Notified: 05/10/17 Time Notified: 10:35 05/10/17 14:31 Consult to Physician [CONS] Routine Comment: Consulting Provider: Consult to Specialist Group: Pulmonology When should Consulting Provider be notified: Now Person Notified: Dr. Tijerina Date Notified: 05/10/17 Time Notified: 14:44 Consult Notification Comment: will see patient tomorrow 05/12/17 08:39 Consult to Physical Therapy [CONS] Routine Reason for Physical Therapy: Evaluate and Treat 05/13/17 12:18 Consult to Case Mgmt/Social Srvs [CONS] Routine Reason for Case Mgmt/Social Srvs: Equipment Consult Comment: eval for home O2 Discharging clinician: Migue Esparza MD
[2017-05-14] MEDS: CLOPIDOGREL 75 MG TABLET PO SCH (09:35)
[2017-05-14] MEDS: SPIRONOLACTONE 25 MG TABLET PO SCH (09:35)
[2017-05-14] MEDS: LORATADINE 10 MG TABLET PO SCH (09:35)
[2017-05-14] MEDS: FUROSEMIDE 40 MG TABLET PO SCH (09:35)
[2017-05-14] MEDS: PANTOPRAZOLE 40 MG TABLET PO SCH (09:35)
[2017-05-14] MEDS: POTASSIUM CHLORIDE 20 MEQ TABLET PO SCH (09:35)
[2017-05-14] MEDS: DICLOFENAC 1% GEL 100 GM TUBE TOP SCH (09:36)
[2017-05-14] MEDS: DOCUSATE SODIUM 100 MG CAPSULE PO SCH (09:36)
== END 2017-05-14 12:00 | disposition home or self-care (01) | DRG 293 ==
LOC: N.ED 15:30 → N.EDINP 18:16 → N.TELES 18:49
PROVIDERS: ADMIT Internal Medicine; ATTEND Internal Medicine

== ENCOUNTER 2017-09-09 11:29 | Inpatient (IN) ==
[2017-09-09] MEDS ORDERED: ONDANSETRON 4 MG/2 ML VIAL IV PRN (11:43)
[2017-09-09] MEDS ORDERED: ACETAMINOPHEN 325 MG TABLET PO PRN (11:43)
[2017-09-09] MEDS ORDERED: FUROSEMIDE 100 MG/10 ML VIAL IV ONE (13:00)
[2017-09-09 14:12] LABS: Basophils % 0.2 % (0.0-0.8); Eosinophils % 0.2 % (0.00-10.9); Hematocrit 35.8 VOL% (35.7-47.0); Hemoglobin 11.3 GM/DL (12.0-16.0); Immature Granulocytes % 1.4 %; Immature Granulocytes Absolute 0.09 #; Lymphocytes # 0.3 10*3/uL (1.4-4.0); Lymphocytes % 4.4 % (21.3-54.2); Mean Corpuscular HGB Conc 31.6 GM/DL (32-36); Mean Corpuscular Hemoglobin 25 PG (27-34); Mean Corpuscular Volume 79.7 FL (87-102); Mean Platelet Volume 10.3 FL (9.6-12.0); Monocytes # 0.6 10*3/uL (0.11-0.8); Monocytes % 8.4 % (1.7-12.7); NRBC # 0.05 10*3/uL; Neutrophils # 5.7 10*3/uL (1.4-7.4); Neutrophils % 85.4 % (38.7-73.9); Platelet Count 107 T/CUMM (130-400); Red Blood Count 4.49 MC/CUMM (3.8-5.5); Red Cell Distribution Width 18.8 % (9.3-17.3); White Blood Count 6.6 T/CUMM (4-12)
[2017-09-09 14:36] LABS: Magnesium 1.8 MG/DL (1.8-2.4); Osmolality,Calculated 270.8 MOS/KG (273-304); Potassium 5.1 MMOL/L (3.5-5.1)
[2017-09-09] MEDS: FUROSEMIDE 100 MG/10 ML VIAL IV SCH (16:32)
[2017-09-09] MEDS: ATORVASTATIN 40 MG TABLET PO SCH (21:20)
[2017-09-09] MEDS: DOCUSATE SODIUM 100 MG CAPSULE PO SCH (21:20)
[2017-09-10 06:34] LABS: Eosinophils % 0.1 % (0.00-10.9); Hematocrit 33.2 VOL% (35.7-47.0); Hemoglobin 10.5 GM/DL (12.0-16.0); Immature Granulocytes % 1.3 %; Immature Granulocytes Absolute 0.09 #; Lymphocytes # 0.5 10*3/uL (1.4-4.0); Lymphocytes % 7.4 % (21.3-54.2); Mean Corpuscular HGB Conc 31.6 GM/DL (32-36); Mean Corpuscular Hemoglobin 25 PG (27-34); Mean Corpuscular Volume 78.9 FL (87-102); Mean Platelet Volume 11.5 FL (9.6-12.0); Monocytes # 0.8 10*3/uL (0.11-0.8); Monocytes % 11.2 % (1.7-12.7); Neutrophils # 5.5 10*3/uL (1.4-7.4); Platelet Count 110 T/CUMM (130-400); Red Blood Count 4.21 MC/CUMM (3.8-5.5); Red Cell Distribution Width 18.6 % (9.3-17.3); White Blood Count 6.9 T/CUMM (4-12)
[2017-09-10 06:35] LABS: NRBC # 0.03 10*3/uL
[2017-09-10 07:03] LABS: Band Neutrophils 4 % (0-10); Burr Cells 1+; Lymphocytes 15 % (20-55); Microcytosis 1+; Platelet Estimate Decreased; Segmented Neutrophils 73 % (50-85); Total Cells Counted 100
[2017-09-10 07:15] LABS: Calcium 9.7 MG/DL (8.5-10.1); Osmolality,Calculated 278.2 MOS/KG (273-304); Potassium 4.1 MMOL/L (3.5-5.1)
[2017-09-10 08:43] LABS: Albumin 3.2 G/DL (3.4-5.0); Bilirubin,Direct 1.21 MG/DL (0.0-0.20); Bilirubin,Indirect 1.6 MG/DL (0.0-1.0); Bilirubin,Total 2.8 MG/DL (0.2-1.0)
[2017-09-10] MEDS: CLOPIDOGREL 75 MG TABLET PO SCH (08:44)
[2017-09-10] MEDS: SPIRONOLACTONE 25 MG TABLET PO SCH (08:44)
[2017-09-10] MEDS: LORATADINE 10 MG TABLET PO SCH (08:44)
[2017-09-10] MEDS: PANTOPRAZOLE 40 MG TABLET PO SCH (08:44)
[2017-09-10] MEDS: FUROSEMIDE 100 MG/10 ML VIAL IV SCH ×2 (08:44→15:55)
[2017-09-10] MEDS: DOCUSATE SODIUM 100 MG CAPSULE PO SCH ×2 (08:44→21:56)
[2017-09-10] MEDS ORDERED: PANTOPRAZOLE 40 MG TABLET PO SCH (09:00)
[2017-09-10] MEDS: ENOXAPARIN 30 MG/0.3 ML SYRINGE SUBCUT SCH (10:33)
[2017-09-10] MEDS: BENZONATATE 100 MG CAPSULE PO SCH ×2 (12:22→21:56)
[2017-09-10] MEDS: ATORVASTATIN 40 MG TABLET PO SCH (21:56)
[2017-09-11 07:02] LABS: Eosinophils % 0.3 % (0.00-10.9); Hematocrit 31.9 VOL% (35.7-47.0); Immature Granulocytes Absolute 0.07 #; Lymphocytes # 0.5 10*3/uL (1.4-4.0); Lymphocytes % 6.8 % (21.3-54.2); Mean Corpuscular HGB Conc 31.3 GM/DL (32-36); Mean Corpuscular Hemoglobin 25 PG (27-34); Mean Platelet Volume 10.7 FL (9.6-12.0); Monocytes # 0.7 10*3/uL (0.11-0.8); Monocytes % 10.3 % (1.7-12.7); NRBC # 0.04 10*3/uL; Neutrophils # 5.7 10*3/uL (1.4-7.4); Neutrophils % 81.6 % (38.7-73.9); Platelet Count 101 T/CUMM (130-400); Red Blood Count 4.04 MC/CUMM (3.8-5.5); Red Cell Distribution Width 18.6 % (9.3-17.3)
[2017-09-11 07:30] LABS: Calcium 8.8 MG/DL (8.5-10.1); Osmolality,Calculated 280.2 MOS/KG (273-304); Potassium 3.4 MMOL/L (3.5-5.1)
[2017-09-11] MEDS: DOCUSATE SODIUM 100 MG CAPSULE PO SCH ×2 (08:43→20:35)
[2017-09-11] MEDS: BENZONATATE 100 MG CAPSULE PO SCH ×2 (08:43→20:35)
[2017-09-11] MEDS: LORATADINE 10 MG TABLET PO SCH (08:43)
[2017-09-11] MEDS: CLOPIDOGREL 75 MG TABLET PO SCH (08:43)
[2017-09-11] MEDS: SPIRONOLACTONE 25 MG TABLET PO SCH (08:43)
[2017-09-11] MEDS: PANTOPRAZOLE 40 MG TABLET PO SCH (08:43)
[2017-09-11] MEDS: ENOXAPARIN 30 MG/0.3 ML SYRINGE SUBCUT SCH (08:43)
[2017-09-11] MEDS: metOLazone 2.5 MG TABLET PO SCH ×2 (08:58→20:35)
[2017-09-11] MEDS: POTASSIUM CHLORIDE 8 MEQ CAPSULE PO SCH ×2 (08:58→20:35)
[2017-09-11] MEDS: FUROSEMIDE 100 MG/10 ML VIAL IV SCH ×2 (08:58→16:21)
[2017-09-11] MEDS: ATORVASTATIN 40 MG TABLET PO SCH (20:35)
[2017-09-12 06:58] LABS: Basophils % 0.1 % (0.0-0.8); Eosinophils % 0.1 % (0.00-10.9); Hematocrit 32.6 VOL% (35.7-47.0); Hemoglobin 10.2 GM/DL (12.0-16.0); Immature Granulocytes Absolute 0.07 #; Lymphocytes # 0.6 10*3/uL (1.4-4.0); Lymphocytes % 8.1 % (21.3-54.2); Mean Corpuscular HGB Conc 31.3 GM/DL (32-36); Mean Corpuscular Hemoglobin 25 PG (27-34); Mean Corpuscular Volume 78.2 FL (87-102); Mean Platelet Volume 10.7 FL (9.6-12.0); Monocytes # 0.7 10*3/uL (0.11-0.8); Monocytes % 10.7 % (1.7-12.7); NRBC # 0.05 10*3/uL; Neutrophils # 5.6 10*3/uL (1.4-7.4); Platelet Count 101 T/CUMM (130-400); Red Blood Count 4.17 MC/CUMM (3.8-5.5); Red Cell Distribution Width 18.4 % (9.3-17.3); White Blood Count 6.9 T/CUMM (4-12)
[2017-09-12 07:23] LABS: Osmolality,Calculated 279.4 MOS/KG (273-304); Potassium 3.1 MMOL/L (3.5-5.1)
[2017-09-12 07:36] LABS: Band Neutrophils 1 % (0-10); Burr Cells Slight; Lymphocytes 7 % (20-55); Platelet Estimate Decreased; Segmented Neutrophils 87 % (50-85); Total Cells Counted 100
[2017-09-12] MEDS: ENOXAPARIN 30 MG/0.3 ML SYRINGE SUBCUT SCH (09:12)
[2017-09-12] MEDS: DOCUSATE SODIUM 100 MG CAPSULE PO SCH ×2 (09:12→20:24)
[2017-09-12] MEDS: LORATADINE 10 MG TABLET PO SCH (09:12)
[2017-09-12] MEDS: PANTOPRAZOLE 40 MG TABLET PO SCH (09:12)
[2017-09-12] MEDS: POTASSIUM CHLORIDE 8 MEQ CAPSULE PO SCH ×2 (09:12→20:24)
[2017-09-12] MEDS: FUROSEMIDE 100 MG/10 ML VIAL IV SCH ×2 (09:12→16:12)
[2017-09-12] MEDS: SPIRONOLACTONE 25 MG TABLET PO SCH (09:12)
[2017-09-12] MEDS: metOLazone 2.5 MG TABLET PO SCH ×2 (09:12→20:24)
[2017-09-12] MEDS: BENZONATATE 100 MG CAPSULE PO SCH ×3 (09:12→20:24)
[2017-09-12] MEDS: CLOPIDOGREL 75 MG TABLET PO SCH (09:13)
[2017-09-12 16:24] LABS: CKMB % 6.5 %; Troponin I Only 0.079 NG/ML (0.00-0.045)
[2017-09-12 18:55] LABS: CKMB % 7.2 %
[2017-09-12 18:56] LABS: Troponin I Only 0.107 NG/ML (0.00-0.045)
[2017-09-13 05:42] LABS: Basophils % 0.1 % (0.0-0.8); Eosinophils % 0.1 % (0.00-10.9); Hematocrit 33.1 VOL% (35.7-47.0); Immature Granulocytes % 1.3 %; Immature Granulocytes Absolute 0.09 #; Lymphocytes # 0.7 10*3/uL (1.4-4.0); Lymphocytes % 9.3 % (21.3-54.2); Mean Corpuscular HGB Conc 33.2 GM/DL (32-36); Mean Corpuscular Hemoglobin 25 PG (27-34); Mean Corpuscular Volume 75.4 FL (87-102); Mean Platelet Volume 10.5 FL (9.6-12.0); Monocytes # 0.7 10*3/uL (0.11-0.8); Monocytes % 9.3 % (1.7-12.7); NRBC # 0.12 10*3/uL; Neutrophils # 5.7 10*3/uL (1.4-7.4); Neutrophils % 79.9 % (38.7-73.9); Platelet Count 116 T/CUMM (130-400); Red Blood Count 4.39 MC/CUMM (3.8-5.5); Red Cell Distribution Width 18.6 % (9.3-17.3); White Blood Count 7.1 T/CUMM (4-12)
[2017-09-13 06:15] LABS: Calcium 9.2 MG/DL (8.5-10.1); Magnesium 1.9 MG/DL (1.8-2.4); Osmolality,Calculated 274.9 MOS/KG (273-304); Potassium 3.7 MMOL/L (3.5-5.1); Risk Ratio 2.32
[2017-09-13] MEDS: BENZONATATE 100 MG CAPSULE PO SCH ×3 (08:53→20:30)
[2017-09-13] MEDS: POTASSIUM CHLORIDE 8 MEQ CAPSULE PO SCH ×2 (08:53→20:30)
[2017-09-13] MEDS: PANTOPRAZOLE 40 MG TABLET PO SCH (08:54)
[2017-09-13] MEDS: DOCUSATE SODIUM 100 MG CAPSULE PO SCH ×2 (08:54→20:31)
[2017-09-13] MEDS: ENOXAPARIN 30 MG/0.3 ML SYRINGE SUBCUT SCH (08:54)
[2017-09-13] MEDS: CLOPIDOGREL 75 MG TABLET PO SCH (08:54)
[2017-09-13] MEDS: SPIRONOLACTONE 25 MG TABLET PO SCH (08:54)
[2017-09-13] MEDS: metOLazone 2.5 MG TABLET PO SCH ×2 (08:54→20:30)
[2017-09-13] MEDS: LORATADINE 10 MG TABLET PO SCH (08:54)
[2017-09-13] MEDS: FUROSEMIDE 100 MG/10 ML VIAL IV SCH (08:55)
[2017-09-13] MEDS ORDERED: FUROSEMIDE 100 MG/10 ML VIAL IV SCH (16:00)
[2017-09-13] MEDS ORDERED: ALBUTEROL/IPRATROPIUM 3 ML NEB RESP TX PRN (17:58)
[2017-09-13 21:22] VITALS: BP 83/57
[2017-09-14] MEDS ORDERED: SPIRONOLACTONE 25 MG TABLET PO SCH ×2 (09:00)
[2017-09-14] MEDS ORDERED: SPIRONOLACTONE/HCTZ 25-25 MG TABLET PO SCH (09:00)
[2017-09-14] MEDS ORDERED: hydroCHLOROthiazide 12.5 MG CAPSULE PO SCH (09:00)
== END 2017-09-13 22:55 | disposition expired | DRG 291 ==
LOC: N.2E 12:36
PROVIDERS: ADMIT Internal Medicine; ATTEND Internal Medicine